=== PATIENT | male | born 1970 | race Caucasian/White ===

== ENCOUNTER 2017-09-07 12:29 | Outpatient (CLI) | payer OTHER | END 2017-09-07 12:30 | disposition home or self-care (01) | LOC: BICMRI 12:29 | PROVIDERS: ATTEND Orthopaedic Surgery | DX: M25.552 Pain in left hip (principal) ==

== ENCOUNTER 2019-05-02 17:30 | Outpatient (CLI) | payer OTHER | END 2019-05-02 17:31 | disposition home or self-care (01) | LOC: SLEEPLAB 17:30 | PROVIDERS: ATTEND Internal Medicine | DX: Z53.9 Procedure and treatment not carried out, unspecified reason (principal) | CPT/HCPCS: 95806 ==

== ENCOUNTER 2019-07-24 19:30 | Outpatient (CLI) | payer OTHER | END 2019-07-24 19:31 | disposition home or self-care (01) | LOC: SLEEPLAB 19:30 | PROVIDERS: ATTEND Internal Medicine | DX: G47.33 Obstructive sleep apnea (adult) (pediatric) (principal); R51 Headache; R53.83 Other fatigue; K21.9 Gastro-esophageal reflux disease without esophagitis; E11.9 Type 2 diabetes mellitus without complications; F41.9 Anxiety disorder, unspecified; R35.1 Nocturia; G47.10 Hypersomnia, unspecified | CPT/HCPCS: 95810 ==

== ENCOUNTER 2019-09-29 19:16 | Inpatient (IN) | payer OTHER ==
[2019-09-29 19:54] LABS: #Lymphocytes 0.5 thou/uL (1.20-3.40); #Monocytes 0.7 thou/uL (0.11-0.59); #Neutrophils 13.7 thou/uL (1.40-6.50); %Eosinophils 0.1 % (0.0-10.0); %Lymphocytes 3.6 % (21.0-51.0); %Monocytes 4.7 % (0.0-10.0); %Neutrophils 91.6 % (42.0-75.0); Hemoglobin 15.2 g/dL (14.0-18.0); Mean Corpuscular HGB CONC 34.3 g/dL (32.0-36.0); Mean Corpuscular Hemoglobin 34.7 pg (27.0-31.0); Mean Platelet Volume 9.3 fL (7.4-10.4); Platelet Count 160 thou/uL (130-400); RBC Distribution Width 11.7 % (11.5-14.5); Red Blood Cell (RBC) Count 4.38 mill/uL (4.70-6.10)
[2019-09-29 20:18] LABS: ALT (SGPT) 17 U/L (8-55); AST (SGOT) 12 U/L (5-34); Alkaline Phosphatase 68 U/L (40-110); Anion Gap 23 mmol/L (10-20); BUN (Urea Nitrogen) 22 mg/dL (8.9-20.6); Bilirubin, Total 1.2 mg/dL (0.2-1.2); CK (CPK) 112 U/L (30-200); Calc. Creatinine Clearance 0 mL/min (70-130); Carbon Dioxide 16 mmol/L (22-29); Chloride 100 mmol/L (98-107); Estimated GFR-MDRD 66; Globulin 2.3 g/dL (2.4-3.5); Glucose 435 mg/dL (70-105); Lipase 5 U/L (8-78); Potassium 4.8 mmol/L (3.5-5.1); Protein, Total 6.3 g/dL (6.0-8.3); Sodium 134 mmol/L (136-145)
--- NOTE | 2019-09-29 20:24 | RAD ---
Chest AP view INDICATION: Syncope and shortness of breath COMPARISON: January 13, 2011 FINDINGS: Lungs: The lungs are clear Cardiac silhouette: The cardiomediastinal silhouette appears within normal limits. Pulmonary vasculature: Normal Pleural spaces: No pleural effusion or pneumothorax is demonstrated. Upper abdomen: No abnormality seen. Osseous structures: No acute osseous abnormality. Additional findings: None. IMPRESSION: No acute cardiopulmonary abnormality.
[2019-09-29 21:07] LABS: Base Excess-Venous -6.5 mmol/L (-2.0 to 3.0); Bicarbonate (HCO3v) 20.1 mmol/L (22.0-28.0); CO2 Tension (PvCO2) 43.1 mmHg (40.0-50.0); Calcium, Ionized 1.14 mmol/L (See Comments:); Chloride 103 mmol/L (98-107); Hemoglobin - Calc 14.9 g/dL (14.0-18.0); Potassium 5.8 mmol/L (3.5-5.1); Sodium 134 mmol/L (138-145); T. Carbon Dioxide 21.5 mmol/L (22.0-28.0); vO2 Saturation-calc 54.2 % (60.0-85.0)
[2019-09-29] MEDS ORDERED: Insulin Regular 100 units/100 ml in NS IVPB SCH (22:00)
[2019-09-29] MEDS ORDERED: Electrolyte Replacement Protocol IVPB SCH (22:27)
[2019-09-29] MEDS ORDERED: Sodium Chloride 0.9% 1,000 ML IV PRN ×4 (22:27)
[2019-09-29] MEDS ORDERED: Acetaminophen 325 MG TAB PO PRN (22:27)
[2019-09-29] MEDS ORDERED: Dextrose 5 %-0.45 % NaCl 1,000 ML IV PRN (22:27)
[2019-09-29] MEDS ORDERED: Acetaminophen 650 MG Suppository PR PRN (22:27)
[2019-09-29] MEDS ORDERED: Ondansetron PF 4 MG/2 ML Vial IVP PRN (22:27)
[2019-09-29] MEDS ORDERED: NS 0.9% w/ 20 MEQ KCL 1,000 ML IV PRN ×2 (22:27)
[2019-09-29] MEDS ORDERED: HUMULIN R 100 UNITS in Sodium Chloride 0.9% 100 ML IVPB SCH (22:30)
[2019-09-29 23:11] LABS: Fibrinogen 274 mg/dL (253-463)
[2019-09-29 23:13] LABS: D-Dimer Test Less than 0.27 *mcg/mL (0.27-0.43)
[2019-09-29 23:14] LABS: Hemoglobin A1c 9.6 % (4.0-6.0)
[2019-09-29 23:14] LABS: Anion Gap 23 mmol/L (10-20); BUN (Urea Nitrogen) 24 mg/dL (8.9-20.6); Calc. Creatinine Clearance 0 mL/min (70-130); Calcium 8.4 mg/dL (7.8-10.44); Carbon Dioxide 16 mmol/L (22-29); Chloride 102 mmol/L (98-107); Estimated GFR-MDRD 67; Glucose 423 mg/dL (70-105); Potassium 4.8 mmol/L (3.5-5.1); Sodium 136 mmol/L (136-145)
[2019-09-30] MEDS ORDERED: Acetaminophen 500 MG TAB PO PRN (00:14)
[2019-09-30] MEDS ORDERED: Metoclopramide HCl 10 MG/2 ML VIAL IVP SCH (00:15)
[2019-09-30] MEDS ORDERED: diphenhydrAMINE 50 MG/ML VIAL IVP SCH (00:15)
[2019-09-30] MEDS: D5 1/2 NS w/20 mEq KCL 1,000 ML IV PRN ×2 (02:54→07:02)
[2019-09-30 03:53] VITALS: BMI 22.4
[2019-09-30 03:55] LABS: Anion Gap 11 mmol/L (10-20); BUN (Urea Nitrogen) 23 mg/dL (8.9-20.6); Calc. Creatinine Clearance 100 mL/min (70-130); Calcium 7.9 mg/dL (7.8-10.44); Carbon Dioxide 20 mmol/L (22-29); Chloride 110 mmol/L (98-107); Estimated GFR-MDRD Greater than 90; Glucose 135 mg/dL (70-105); Potassium 4.1 mmol/L (3.5-5.1); Sodium 137 mmol/L (136-145)
[2019-09-30 03:58] LABS: Anion Gap 12 mmol/L (10-20); BUN (Urea Nitrogen) 23 mg/dL (8.9-20.6); CRP (Inflammatory) Less than 0.50 mg/dL (= or < 0.5); Calc. Creatinine Clearance 100 mL/min (70-130); Carbon Dioxide 20 mmol/L (22-29); Chloride 110 mmol/L (98-107); Estimated GFR-MDRD Greater than 90; Glucose 136 mg/dL (70-105); Potassium 4.2 mmol/L (3.5-5.1); Sodium 138 mmol/L (136-145)
--- NOTE | 2019-09-30 05:11 | PDOC.FPRHP ---
- History of Present Illness Chief Complaint: pre-syncope History of Present Illness: 49YOM with a PMH notable for IDDMI who presented to the ER via EMS after reportedly having a pre-syncopal episode at work. Per the patient was in his usual state of health until ~3-4 days ago when he started experiencing a constant frontal BROWN and L-sided chest ache. This unrelenting pain as well as nausea is what eventually prompted him to get COVID swabbed at the [facility] in & he still doesn't know those results. Was tested on 09/27/19. Since his COVID test his BROWN, chest pain, & nausea have persisted. 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 He denies any LOC or hitting his head. He endorses nausea w / 1 vomiting episode at work before his pre-syncopal episode. He denies any fever/chills, cough, congestion, sore throat, abodminal pain, dysuria, or polyuria. No SOB or diarrhea as well. Of note, the patient reports that he noted after his arrival to the ER that his insulin pump connection was faulty. His BG was reportedly in the 300 per his home BG monitor in the field but ~5 minutes later when EMS checked it it was in the 500s. Reports that he did attempt to give himself a 4.2U bolus [employer] in the ED. ED Course: Insulin ggt @ 7, 2.5L of NS - Allergies/Adverse Reactions Allergies Allergy/AdvReac Type Severity Reaction Status Date / Time azithromycin Allergy Verified 09/30/19 03:26 erythromycin base Allergy Verified 06/13/19 01:50 - Home Medications Medication Instructions Recorded Confirmed Type FLUoxetine HCl [Prozac] 60 mg PO DAILY 09/30/19 09/30/19 History Insulin Pump Controller [Omnipod 09/30/19 History Dash Pdm Kit] Modafinil 200 mg PO DAILY 09/30/19 09/30/19 History Ondansetron HCl [Zofran] 4 mg PO Q8HR PRN 09/30/19 09/30/19 History QUEtiapine Fumarate [SEROquel] 25 mg PO HS 09/30/19 09/30/19 History Rosuvastatin [Crestor] 10 mg PO HS 09/30/19 09/30/19 History Sertraline HCl 25 mg PO HS 09/30/19 09/30/19 History - History PMHx: DMI, anxiety, HLD PSHx: L knee, B/L rotator cuff repairs, R elbow, L hip, B/L eye sx for retinopathy FHx: Brother with DMI, mom w/ DMII, dad w/ CAD & h/o CVA Social: Lives at home w/ . Works as a auto body mechanic apprentice. Former smoker. Smoked ~1.5 ppd from age 17- ~44YO. Former alcoholic but quit in 1998. Drinks ~1 beer/day now. No drug use since college. - Review of Systems General: denies: fever/chills Eyes: denies: vision changes ENT: reports: other (no sore throat). denies: nasal congestion Respiratory: denies: cough, shortness of breath Cardiovascular: reports: chest pain. denies: palpitation, edema Gastrointestinal: reports: nausea, vomiting. denies: diarrhea, constipation, abdominal pain Genitourinary: reports: other (no hematuria). denies: dysuria Skin: denies: rashes, lesions Musculoskeletal: denies: pain, swelling Neurological: reports: other (+ BROWN). denies: syncope, seizure Psychological: reports: anxiety. denies: depression - Vital signs BP: 105/45 HR: 113 RR: 19 Tmax: 98.2F Pox: 97% on RA Wt: 69 kg - Physical Exam Constitutional: NAD, awake, alert and oriented HEENT: normocephalic and atraumatic, grossly normal vision, grossly normal hearing, MMM, other (poor dentition) Neck: supple, FROM Heart: normal S1/S2, no murmurs/rubs/gallops, pulses present, no edema, other ( tachycardic with regular rhythm) Lungs: CTAB, no respiratory distress, good air movement, no rales/rhonchi, no wheezing, no retractions Abdomen: soft, non-tender, bowel sounds present Musculoskeletal: normal structure, normal tone, ROM grossly normal Neurological: no focal deficit, CN II-XII intact Skin: no rash/lesions, good turgor Heme/Lymphatic: no unusual bruising or bleeding Psychiatric: normal mood and affect, good judgment and insight, intact recent and remote memory FMR H&P: Results - Labs Result Diagrams: 09/29/19 19:46 09/30/19 02:54 Lab results: WBC 15.0 thou/uL (4.8-10.8) H 09/29/19 19:46 Hgb 15.2 g/dL (14.0-18.0) 09/29/19 19:46 Hct 44.3 % (42.0-52.0) 09/29/19 19:46 MCV 101.0 fL (78.0-98.0) H 09/29/19 19:46 Plt Count 160 thou/uL (130-400) 09/29/19 19:46 Neutrophils % 91.6 % (42.0-75.0) H 09/29/19 19:46 VBG pCO2 43.1 mmHg (40.0-50.0) 09/29/19 21:05 VBG pO2 32.3 mmHg (35.0-45.0) L 09/29/19 21:05 Sodium 138 mmol/L (136-145) 09/30/19 02:54 Potassium 4.2 mmol/L (3.5-5.1) 09/30/19 02:54 Chloride 110 mmol/L (98-107) H 09/30/19 02:54 Carbon Dioxide 20 mmol/L (22-29) L 09/30/19 02:54 BUN 23 mg/dL (8.9-20.6) H 09/30/19 02:54 Creatinine 0.86 mg/dL (0.7-1.3) 09/30/19 02:54 Glucose 136 mg/dL (70-105) H 09/30/19 02:54 Calcium 8.0 mg/dL (7.8-10.44) 09/30/19 02:54 Total Bilirubin 1.2 mg/dL (0.2-1.2) 09/29/19 19:46 AST 12 U/L (5-34) 09/29/19 19:46 ALT 17 U/L (8-55) 09/29/19 19:46 Alkaline Phosphatase 68 U/L (40-110) 09/29/19 19:46 Creatine Kinase 112 U/L (30-200) 09/29/19 19:46 C-Reactive Protein Less than 0.50 mg/dL (= or < 0.5) 09/30/19 02:54 B-Natriuretic Peptide 18.8 pg/mL (0-100) 09/29/19 19:46 Serum Total Protein 6.3 g/dL (6.0-8.3) 09/29/19 19:46 Albumin 4.0 g/dL (3.5-5.0) 09/29/19 19:46 Lipase 5 U/L (8-78) L 09/29/19 19:46 Laboratory Tests 09/29/19 19:30 B-Hydroxybutyrate 5.86 H - EKG Interpretation EKG: NSR @ 94 bpm, QTc 477 - Radiology Interpretation Chest x-ray Status: image reviewed by me, report reviewed by me (MAICOL) FMR H&P: A/P - Problem List (1) Diabetic ketoacidosis associated with type 1 diabetes mellitus Current Visit: Yes Status: Acute Code(s): E10.10 - TYPE 1 DIABETES MELLITUS WITH KETOACIDOSIS WITHOUT COMA (2) Anxiety Current Visit: Yes Status: Chronic Code(s): F41.9 - ANXIETY DISORDER, UNSPECIFIED (3) Dyslipidemia Current Visit: No Status: Chronic Code(s): E78.5 - HYPERLIPIDEMIA, UNSPECIFIED (4) HTN (hypertension) Current Visit: No Status: Chronic Code(s): I10 - ESSENTIAL (PRIMARY) HYPERTENSION (5) Person under investigation for COVID-19 Current Visit: Yes Status: Acute Code(s): Z20.828 - CONTACT W AND EXPOSURE TO OTH VIRAL COMMUNICABLE DISEASES (6) MEGAN (acute kidney injury) Current Visit: Yes Status: Acute Code(s): N17.9 - ACUTE KIDNEY FAILURE, UNSPECIFIED - Plan 49YOM with a PMH notable for DMI who presented to the ER via EMS for a near- syncopal episode at work who was found to be profoundly hyperglycemic & determined to be in DKA. #DKA in setting of DMI: - AG of 18 w/ elevated serum ketones and BG of 435 on presentation c/w DKA in setting of DMI. S/p bolus in field. Started on insulin drip & DKA protocol in ED. Continue Q4Hr BMPs & Q1Hr accuchecks per DKA protocol. - Per Hx likely 2/2 pump malfunction but will obtain a UA to r/o possible UTI. CXR WNLs. COVID swab pending. #MGEAN: - eGFR 66 w/ Cr of 1.17 on presentation which is above baseline per chart review. Will continue to monitor w/ DKA protocol BMPs & getting fluids per the protocol to help with this as well. #COVID-19 PUI: - Had outpatient testing done in on 09/27/19 @ physician center on [address] per patient with no results back yet. Rapid screen taken in ER & still pending. Continue routine precautions pending the results. Will add COVID labs but very low suspicion based on history. #DMI: - Aware, patient has an insulin pump. Will resume home dosing regimen once off insulin ggt. Will check an A1c w/ admission labs. #Anxiety: - Will resume home meds. #HLD: - Resume home meds. Dispo: Will admit to the IMCU for continued tx of DKA per protocol. Anticipated LOS >/=2 midnights pending clinical course. IVFs: per DKA protocol Abx: None VTE PPX: Lovenox GI PPX: famotidine CODE STATUS: FULL CODE PCP: Goldie NVAA H&P: Upper Level - Plan Date/Time: 09/30/19 0511 I, [], have evaluated this patient and agree with findings/plan as outlined by recruitment internship resident. Pertinent changes/additions are listed here.
--- NOTE | 2019-09-30 06:12 | PDOC.FM ---
- Subjective Subjective: Patient states he feels better this morning. His headache has improved and is reported as a mild pain. Chest pain is described as musculoskeletal, waving/ waning and currently a 2/10. He denies nausea or vomiting since last night. No SOB or dizziness. He says his last hospitalization for DKA was over 10 years ago. - Objective MAR Reviewed: Yes Vital Signs & Weight: Vital Signs (12 hours) Temp Pulse Ox 09/30/19 04:00 99 09/30/19 03:53 97.8 F 09/30/19 02:40 98.7 F Weight Weight 69.088 kg Result Diagrams: 09/29/19 19:46 09/30/19 06:38 Phys Exam - Physical Examination Constitutional: NAD HEENT: moist MMs, sclera anicteric Neck: supple, full ROM Respiratory: no wheezing, clear to auscultation bilateral Cardiovascular: RRR, no significant murmur Gastrointestinal: soft, positive bowel sounds Musculoskeletal: no edema, pulses present Neurological: non-focal, moves all 4 limbs Lymphatic: no nodes Psychiatric: normal affect, A&O x 3 Skin: no rash, normal turgor Dx/Plan - Plan Plan: 1. DKA 2/2 DM Type 1 Likely due to pump malfunction patient noticed last night. Anion gap of 18 with elevated serum ketones and BG of 435 upon admission. CXR normal. COVID negative. A1C 9.6. Patient received bolus in the field. DKA protocol initiated in the ED with insulin ggt and D5 1/2 NS with KCl. UA ordered for possible UTI. Most recent BMP showed BG 111, anion gap 5, bicarb 21. Patient meets criteria to discontinue insulin ggt. He has extra supplies for the pump in the room. -BMP q4h -Accucehcks Q1hr -Restart basal insulin using pump. Settings are based on patient's routine working night shifts [id number] 0.75 1366-7033 0.65 6931-4284 0.60 0923-4103 1.00 3539-2850 1.10 -Discontinue insulin drip after 1 hour of receiving basal insulin -DKA protocol for D5 1/2 NS with KCl at 250 mls/hr -Start diabetic diet -F/u UA 2. Low BP on monitor This am BP was 87/52. Repeat improved to 90/54. Patient reports a lifetime history of low BPs without symptoms. Currently receiving fluids. -Continue to monitor 3. Anxiety -Continue home meds 4. HLD -Continue home meds VTE PPX: Lovenox GI PPX: Famotidine CODE STATUS: FULL CODE PCP: Goldie Dispo: transition to floor once insulin ggt discontinued with continued stable BG Addendum - Attending - Attending Attestation Date/Time: 09/30/19 8983 I personally evaluated the patient and discussed the management with Dr. Meek. I agree with the History, Examination, Assessment and Plan documented above with any addition or exceptions noted below. Patient improved. DKA resolved. Transitioning back to his home insulin regimen with insulin pump. Stable for dc out of IMCU.
[2019-09-30 07:17] LABS: Anion Gap 9 mmol/L (10-20); BUN (Urea Nitrogen) 21 mg/dL (8.9-20.6); Calc. Creatinine Clearance 109 mL/min (70-130); Calcium 7.5 mg/dL (7.8-10.44); Carbon Dioxide 21 mmol/L (22-29); Chloride 110 mmol/L (98-107); Estimated GFR-MDRD Greater than 90; Glucose 111 mg/dL (70-105); Sodium 136 mmol/L (136-145)
[2019-09-30] MEDS ORDERED: FLUoxetine HCl 20 MG CAP PO SCH (09:00)
[2019-09-30] MEDS: FLUoxetine HCl 20 MG CAP PO SCH (10:08)
[2019-09-30] MEDS: Modafinil 100 MG TAB PO SCH (10:09)
[2019-09-30] MEDS: Famotidine/PF 20 mg/2ml Vial SLOW IVP SCH ×2 (10:09→22:01)
[2019-09-30] MEDS: Enoxaparin Sodium 40 MG/0.4 ML SYRINGE SC SCH (10:10)
[2019-09-30] MEDS ORDERED: HumaLOG 300 UNITS/3 ML VIAL SC PRN ×2 (11:38)
[2019-09-30] MEDS ORDERED: Dextrose 5% in Water 1,000 ML IV PRN (11:38)
[2019-09-30] MEDS ORDERED: Dextrose 50% Abboject 50 ML SYRINGE SLOW IVP PRN (11:38)
[2019-09-30] MEDS ORDERED: INSULIN PUMP CONTROLLER SQ SCH (11:45)
[2019-09-30 14:37] LABS: Bacteria/HPF None Seen HPF (None Seen); Bilirubin Negative (Negative); Blood, Urine Negative (Negative); Clarity Clear (Clear); Glucose, Urine (Dipstick) Greater than 1000 mg/dL (Negative); Ketone, Urine 40 mg/dL (Negative); Leukocyte Negative Leu/uL (Negative); Mucous/LPF 1+ LPF (<2+); Nitrite Negative (Negative); Protein, Urine (Dipstick) Negative (Neg-Trace); RBC/HPF 0-3 HPF (0-3); Specific Gravity, Urine 1.024 (1.002-1.036); Squamous Epithelial 0-3 HPF (0-3); Urobilinogen Normal mg/dL (Less than 2); WBC/HPF 0-3 HPF (0-3); pH, Urine 5.5 (5.0-9.0)
[2019-09-30 14:39] LABS: Urine Culture Reflex No No
[2019-09-30 16:14] LABS: Anion Gap 13 mmol/L (10-20); BUN (Urea Nitrogen) 20 mg/dL (8.9-20.6); Calc. Creatinine Clearance 94 mL/min (70-130); Carbon Dioxide 19 mmol/L (22-29); Chloride 104 mmol/L (98-107); Estimated GFR-MDRD 87; Potassium 4.7 mmol/L (3.5-5.1); Sodium 131 mmol/L (136-145)
[2019-09-30 16:15] LABS: Calcium 7.5 mg/dL (7.8-10.44); Glucose 384 mg/dL (70-105)
[2019-09-30] MEDS ORDERED: HumaLOG 300 UNITS/3 ML VIAL SC SCH (16:30)
[2019-09-30] MEDS ORDERED: NPH, Human Insulin Isophane 300 UNIT/3 ML VIAL SC SCH (16:30)
[2019-09-30 19:04] LABS: Anion Gap 7 mmol/L (10-20); BUN (Urea Nitrogen) 19 mg/dL (8.9-20.6); Calc. Creatinine Clearance 94 mL/min (70-130); Calcium 7.8 mg/dL (7.8-10.44); Carbon Dioxide 24 mmol/L (22-29); Chloride 104 mmol/L (98-107); Estimated GFR-MDRD 87; Glucose 294 mg/dL (70-105); Potassium 4.2 mmol/L (3.5-5.1); Sodium 131 mmol/L (136-145)
[2019-09-30] MEDS ORDERED: Rosuvastatin 10 MG TAB PO SCH (21:00)
[2019-10-01 03:57] VITALS: TEMP 97.9
[2019-10-01 04:43] LABS: Anion Gap 11 mmol/L (10-20); BUN (Urea Nitrogen) 13 mg/dL (8.9-20.6); Calc. Creatinine Clearance 104 mL/min (70-130); Calcium 7.7 mg/dL (7.8-10.44); Carbon Dioxide 25 mmol/L (22-29); Chloride 106 mmol/L (98-107); Estimated GFR-MDRD Greater than 90; Glucose 147 mg/dL (70-105); Potassium 3.9 mmol/L (3.5-5.1); Sodium 138 mmol/L (136-145)
--- NOTE | 2019-10-01 06:03 | PDOC.FM ---
- Subjective Subjective: Patient reports he feels great. He complains of mild chest wall pain improved with Tylenol but denies headache, dizziness, SOB, nausea and vomiting. His brought new insulin and pump supplies last pm. Patient says his pump has been working well with stable glucose levels since that time. - Objective MAR Reviewed: Yes Vital Signs & Weight: Vital Signs (12 hours) Temp Pulse Ox 10/01/19 03:57 97.9 F 10/01/19 00:00 97.8 F 09/30/19 20:00 98 09/30/19 19:16 99.2 F Weight Weight 69.088 kg Most Recent Monitor Data Heart Rate from ECG 62 NIBP 87/49 NIBP BP-Mean 61 Respiration from ECG 22 SpO2 97 I&O: 09/29/19 09/30/19 10/01/19 06:59 06:59 06:59 Intake Total 1183 2900 Output Total 2850 Balance 1183 50 Result Diagrams: 09/29/19 19:46 10/01/19 03:41 Phys Exam - Physical Examination Constitutional: NAD HEENT: moist MMs, sclera anicteric Neck: supple, full ROM Respiratory: no wheezing, clear to auscultation bilateral Cardiovascular: RRR, no significant murmur Gastrointestinal: soft, positive bowel sounds Musculoskeletal: no edema, pulses present Neurological: non-focal, moves all 4 limbs Lymphatic: no nodes Psychiatric: normal affect, A&O x 3 Skin: no rash, normal turgor Dx/Plan - Plan Plan: 1. DKA 2/2 DM Type 1 Likely due to pump malfunction patient noticed prior to admission. Anion gap of 18 with elevated serum ketones and BG of 435 upon admission. CXR normal. COVID negative. A1C 9.6. Patient received bolus in the field. DKA protocol initiated in the ED with insulin ggt and D5 1/2 NS with KCl. UA ordered for possible UTI. Repeat BMP showed BG 111, anion gap 5, bicarb 21. Patient meets criteria to discontinue insulin ggt. Pump malfunction noted again once resuming home insulin. Patient's brought new insulin and pump supplies from home with resulting reduction and stabilization in BG. -Continue basal insulin using pump. Settings are based on patient's routine working night shifts [id number] 0.75 [id number] 0.65 4114-1395 0.60 5181-8914 1.00 [id number] 1.10 -Continue diabetic diet -Accuchecks Q4H -Transfer to the floor 2. Low BP on monitor Patient reports a lifetime history of low BPs without symptoms. Received fluids for 24 hours. Remained stable at 80-90s systolic. -Continue to monitor 3. Anxiety -Continue home meds 4. HLD -Continue home meds VTE PPX: Lovenox GI PPX: Famotidine CODE STATUS: FULL CODE PCP: Goldie Dispo: stable to transition to floor today with resolution of DKA and stable BG after discontinuing insulin drip. If BG remains stable today, patient can be discharged home. Addendum - Attending - Attending Attestation Date/Time: 10/01/19 0750 I personally evaluated the patient and discussed the management with Dr. Meek. I agree with the History, Examination, Assessment and Plan documented above with any addition or exceptions noted below. Patient doing well and blood sugars controlled now on his home insulin pump and regimen. Suspect this entire admission was due to faulty insulin in his pump. He is feeling well and should be stable for discharge later today.
[2019-10-01] MEDS: Enoxaparin Sodium 40 MG/0.4 ML SYRINGE SC SCH (08:37)
[2019-10-01] MEDS: Famotidine/PF 20 mg/2ml Vial SLOW IVP SCH (08:37)
[2019-10-01] MEDS: FLUoxetine HCl 20 MG CAP PO SCH (08:37)
[2019-10-01] MEDS: Modafinil 100 MG TAB PO SCH (08:44)
[2019-10-01 15:20] VITALS: BP 136/70
--- NOTE | 2019-10-01 22:18 | DIS ---
DATE OF ADMISSION: 09/29/2019 DATE OF DISCHARGE: 10/01/2019 RESIDENT: Celia Meek MD ADMITTING ATTENDING: Graham Peralta MD DISCHARGE ATTENDING: Rj Lucas MD CONSULTS: None. PROCEDURES: None. PRIMARY DIAGNOSES: Diabetic ketoacidosis in the setting of DM1 secondary to faulty insulin and pump SECONDARY DIAGNOSES: Anxiety, hyperlipidemia. DISCHARGE MEDICATIONS: 1. Prozac 60 mg p.o. 2. Omnipod insulin pump. 3. Seroquel 25 mg p.o. 4. Crestor 10 mg p.o. 5. Zoloft 25 mg p.o. 6. Modafinil 200 mg p.o. DISCONTINUED MEDICATIONS: None. HISTORY OF PRESENT ILLNESS: The patient is a 49-year-old male with a history of type 1 diabetes since age 12, who presented to the ER via EMS after a presyncopal episode at work. The patient reported a 3-day history of headaches, chest wall pain, nausea, and vomiting. On the way to the ED, he noted that his pump was not functioning correctly. Upon arrival to the ED, anion gap was found to be 18 with elevated serum ketones and blood glucose of 435. Chest x-ray was negative. COVID was negative. A1c at 9.6. The patient was started on DKA protocol with insulin ggt and D5 half normal saline with KCl. Repeat BMP showed a blood glucose of 111, anion gap of 5, and bicarb of 21. The patient met criteria to discontinue insulin ggt. Upon resumption of the patient's pump and home dose of insulin, a malfunction was noticed again with a resulting increase in blood glucose to the 300s. The patient's brought new insulin from home for the pump, resulting in a successful reduction in blood glucose levels and stabilization of the blood glucose. The pump was set on the patient's home insulin regimen. He was deemed stable to move to the floor on 09/30. Blood glucose remained in the mid 100s during the day and he was deemed stable for discharge in the afternoon. DISPOSITION: Stable. DISCHARGE INSTRUCTIONS: Location: Home. Diet: Diabetic. Activity: As tolerated. Followup: PCP in 3 to 5 days. Job ID: [id number] [facility]
== END 2019-10-01 16:51 | disposition home or self-care (01) | DRG 919 ==
LOC: ERS 19:16 → IMCU/EMU 22:18 → T4-B 10-01 11:08
PROVIDERS: ADMIT Family Medicine; ATTEND Family Medicine
DX: T85.694A Other mechanical complication of insulin pump, initial encounter (principal); E10.10 Type 1 diabetes mellitus with ketoacidosis without coma; N17.9 Acute kidney failure, unspecified; F41.9 Anxiety disorder, unspecified; E78.5 Hyperlipidemia, unspecified; Z20.828 Contact with and (suspected) exposure to other viral communicable diseases; Z87.891 Personal history of nicotine dependence; Z88.1 Allergy status to other antibiotic agents; Z88.8 Allergy status to other drugs, medicaments and biological substances
CPT/HCPCS: 36415; 36416; 71045; 80048; 80053; 80061; 81001; 82010; 82330; 82550; 82728; 82803; 83036; 83615; 83690; 83880; 84484; 85025; 85379; 85384; 86140; 93005; 96361; 96365; 96366; 96367; J1200; J1650; J1815; J2765; J3480; J3490; S0028; U0002

== ENCOUNTER 2020-09-10 01:49 | Inpatient (IN) | payer OTHER ==
[2020-09-10 02:24] LABS: #Eosinphils 0.1 thou/uL (0.0-0.7); #Lymphocytes 0.9 thou/uL (1.20-3.40); #Monocytes 0.7 thou/uL (0.11-0.59); #Neutrophils 14.8 thou/uL (1.40-6.50); %Basophils 0.2 % (0.0-1.0); %Eosinophils 0.3 % (0.0-10.0); %Lymphocytes 5.6 % (21.0-51.0); %Monocytes 4.2 % (0.0-10.0); %Neutrophils 89.7 % (42.0-75.0); Hemoglobin 15.9 g/dL (14.0-18.0); Mean Corpuscular Hemoglobin 35.2 pg (27.0-31.0); Mean Platelet Volume 9.3 fL (7.4-10.4); Platelet Count 168 thou/uL (130-400); RBC Distribution Width 11.7 % (11.5-14.5); Red Blood Cell (RBC) Count 4.53 mill/uL (4.70-6.10); White Blood Cell (WBC) Count 16.5 thou/uL (4.8-10.8)
[2020-09-10 02:47] LABS: ALT (SGPT) 31 U/L (8-55); AST (SGOT) 32 U/L (5-34); Albumin 4.4 g/dL (3.5-5.0); Alkaline Phosphatase 83 U/L (40-110); Anion Gap 29 mmol/L (10-20); BUN (Urea Nitrogen) 33 mg/dL (8.4-25.7); Bilirubin, Total 0.9 mg/dL (0.2-1.2); CK (CPK) 99 U/L (30-200); Calc. Creatinine Clearance 0 mL/min (70-130); Calcium 9.3 mg/dL (7.8-10.44); Carbon Dioxide 13 mmol/L (22-29); Chloride 95 mmol/L (98-107); Glucose 454 mg/dL (70-105); Potassium 5.2 mmol/L (3.5-5.1); Protein, Total 7.4 g/dL (6.0-8.3); Sodium 132 mmol/L (136-145)
[2020-09-10] MEDS ORDERED: Insulin Regular 300 UNITS/3 ML VIAL ONE (03:05)
[2020-09-10 03:21] LABS: Actual Bicarbonate (HCO3v) 17 mEq/L (22-28); Analyzer IN Cardio ER; Base Excess -8.9 mEq/L (-2.0 to +3.0); Calcium, Ionized (venous) 1.14 mmol/L (1.16-1.32); Chloride (VBG) 94 mmol/L (98-106); Hemoglobin (Hb) 15.9 g/dL (13.1-17.2); Potassium (VBG) 4.53 mmol/L (3.70-5.30); Sodium 131.6 mmol/L (133-146); pH (venous) 7.28 (7.32-7.43)
[2020-09-10] MEDS ORDERED: INSULIN REGULAR IN 0.9 % NACL 100 UNIT/100 ML BAG ONE (03:28)
[2020-09-10] MEDS ORDERED: Electrolyte Replacement Protocol 1 EACH IVPB PRN (04:07)
[2020-09-10] MEDS ORDERED: Dextrose 5 %-0.45 % NaCl 1,000 ML IV PRN (04:07)
[2020-09-10] MEDS ORDERED: NS 0.9% w/ 20 MEQ KCL 1,000 ML IV PRN ×2 (04:07)
[2020-09-10] MEDS ORDERED: Sodium Chloride 0.9% 1,000 ML IV PRN ×4 (04:07)
[2020-09-10] MEDS ORDERED: D5 1/2 NS w/20 mEq KCL 1,000 ML IV PRN (04:07)
[2020-09-10] MEDS ORDERED: HUMULIN R 100 UNITS in Sodium Chloride 0.9% 100 ML IVPB SCH (04:15)
[2020-09-10 04:35] LABS: Anion Gap 16 mmol/L (10-20); BUN (Urea Nitrogen) 27 mg/dL (8.4-25.7); Calc. Creatinine Clearance 0 mL/min (70-130); Carbon Dioxide 20 mmol/L (22-29); Chloride 105 mmol/L (98-107); Glucose 175 mg/dL (70-105); Potassium 3.8 mmol/L (3.5-5.1); Sodium 137 mmol/L (136-145)
[2020-09-10 04:46] VITALS: BMI 23.1
[2020-09-10 06:50] LABS: Hemoglobin A1c 9.8 % (4.0-6.0)
[2020-09-10] MEDS ORDERED: Modafinil 100 MG TAB PO SCH ×2 (09:00→21:00)
[2020-09-10] MEDS ORDERED: FLUoxetine HCl 20 MG CAP PO SCH ×2 (09:00→21:00)
[2020-09-10 09:18] LABS: Anion Gap 14 mmol/L (10-20); BUN (Urea Nitrogen) 18 mg/dL (8.4-25.7); Calc. Creatinine Clearance 105 mL/min (70-130); Calcium 7.6 mg/dL (7.8-10.44); Carbon Dioxide 18 mmol/L (22-29); Chloride 104 mmol/L (98-107); Glucose 265 mg/dL (70-105); Potassium 5.4 mmol/L (3.5-5.1); Sodium 131 mmol/L (136-145)
[2020-09-10] MEDS ORDERED: Dextrose 5% in Water 1,000 ML IV PRN (09:35)
[2020-09-10] MEDS ORDERED: HumaLOG 300 UNITS/3 ML VIAL SC PRN ×3 (09:35→14:18)
[2020-09-10] MEDS ORDERED: Dextrose 50% Abboject 50 ML SYRINGE SLOW IVP PRN (09:35)
[2020-09-10 10:54] LABS: SARS-CoV-2 PCR by NAA Not Detected (NotDetected)
[2020-09-10 14:30] LABS: Anion Gap 10 mmol/L (10-20); BUN (Urea Nitrogen) 22 mg/dL (8.4-25.7); Calc. Creatinine Clearance 92 mL/min (70-130); Calcium 8.3 mg/dL (7.8-10.44); Carbon Dioxide 25 mmol/L (22-29); Chloride 102 mmol/L (98-107); Glucose 401 mg/dL (70-105); Potassium 4.9 mmol/L (3.5-5.1); Sodium 132 mmol/L (136-145)
[2020-09-10] MEDS ORDERED: Rosuvastatin 10 MG TAB PO SCH (21:00)
[2020-09-11 03:28] LABS: Band 3 % (5-11); Eosinophils 1 % (0-10); Lymphocytes 19 % (21-51); MDiff Complete? YES; Mean Corpuscular HGB CONC 34.2 g/dL (32.0-36.0); Mean Corpuscular Hemoglobin 34.5 pg (27.0-31.0); Mean Platelet Volume 8.5 fL (7.4-10.4); Monocytes 11 % (0-10); Neutrophil 65 % (42-75); Platelet Count 163 thou/uL (130-400); RBC Distribution Width 12.1 % (11.5-14.5); Reactive Lymphocytes 1 % (0-10); Red Blood Cell (RBC) Count 4.35 mill/uL (4.70-6.10)
[2020-09-11 03:56] LABS: Calcium 8.3 mg/dL (7.8-10.44); Chloride 106 mmol/L (98-107); Potassium 3.3 mmol/L (3.5-5.1); Sodium 140 mmol/L (136-145)
[2020-09-11 03:58] LABS: Anion Gap 14 mmol/L (10-20); Carbon Dioxide 23 mmol/L (22-29)
[2020-09-11 04:00] LABS: Calc. Creatinine Clearance 122 mL/min (70-130)
[2020-09-11 04:01] LABS: BUN (Urea Nitrogen) 14 mg/dL (8.4-25.7)
[2020-09-11 04:02] LABS: Glucose 33 mg/dL (70-105)
[2020-09-11 04:33] VITALS: TEMP 97.5
[2020-09-11] MEDS ORDERED: Potassium Chloride 20 MEQ TAB PO SCH (06:45)
== END 2020-09-11 13:50 | disposition home or self-care (01) | DRG 639 ==
LOC: ERS 01:49 → IMCU/EMU 03:23
PROVIDERS: ADMIT Family Medicine; ATTEND Family Medicine
DX: E10.10 Type 1 diabetes mellitus with ketoacidosis without coma (principal); E78.5 Hyperlipidemia, unspecified; F41.9 Anxiety disorder, unspecified; E86.1 Hypovolemia; F32.9 Major depressive disorder, single episode, unspecified; Z20.822 Contact with and (suspected) exposure to COVID-19; Z88.1 Allergy status to other antibiotic agents; Z79.4 Long term (current) use of insulin; Z87.891 Personal history of nicotine dependence; Z98.890 Other specified postprocedural states
CPT/HCPCS: 36415; 36416; 80048; 80053; 82010; 82550; 82805; 83036; 85007; 85025; 85027; 93005; 96365; 96376; J1815; J3480; U0003; U0005

== ENCOUNTER 2022-09-24 17:58 | Emergency (ER) | payer OTHER ==
[~2022-09-24 17:58] MED LIST: Iopamidol-370 76% 500 ML MDV (1 ML CHARGE) ONE
[2022-09-24 18:38] LABS: #Monocytes 0.9 thou/uL (0.11-0.59); #Neutrophils 5.1 thou/uL (1.40-6.50); %Basophils 0.4 % (0.0-1.0); %Eosinophils 0.5 % (0.0-10.0); %Lymphocytes 16.7 % (21.0-51.0); %Monocytes 12.8 % (0.0-10.0); %Neutrophils 69.3 % (42.0-75.0); Hemoglobin 15.8 g/dL (14.0-18.0); Mean Corpuscular HGB CONC 34.1 g/dL (32.0-36.0); Mean Corpuscular Hemoglobin 34.1 pg (27.0-31.0); Mean Platelet Volume 10.9 fL (7.4-10.4); Platelet Count 166 10x3/uL (130-400); RBC Distribution Width 12.5 % (11.5-14.5); Red Blood Cell (RBC) Count 4.63 mill/uL (4.70-6.10); White Blood Cell (WBC) Count 7.3 10x3/uL (4.8-10.8)
[2022-09-24] MEDS ORDERED: Ipratropium/Albuterol 3 ML NEB ONE (18:42)
[2022-09-24 19:01] LABS: ALT (SGPT) 14 U/L (8-55); AST (SGOT) 16 U/L (5-34); Albumin 3.4 g/dL (3.5-5.0); Alkaline Phosphatase 59 U/L (40-110); Anion Gap 12 mmol/L (10-20); BUN (Urea Nitrogen) 13 mg/dL (8.4-25.7); Bilirubin, Total 0.3 mg/dL (0.2-1.2); Calc. Creatinine Clearance 0 mL/min (70-130); Calcium 8.2 mg/dL (7.8-10.44); Carbon Dioxide 25 mmol/L (22-29); Chloride 101 mmol/L (98-107); Estimated GFR 101; Globulin 2.6 g/dL (2.4-3.5); Glucose 247 mg/dL (70-105); Potassium 4.4 mmol/L (3.5-5.1); Sodium 134 mmol/L (136-145)
[2022-09-24 19:57] LABS: SARS-CoV-2 NAA Rapid Test DETECTED (NotDetected)
== END 2022-09-24 21:50 | disposition home or self-care (01) ==
LOC: ERS 17:58
DX: U07.1 COVID-19 (principal); R06.00 Dyspnea, unspecified; E11.9 Type 2 diabetes mellitus without complications; Z79.4 Long term (current) use of insulin; Z20.822 Contact with and (suspected) exposure to COVID-19
CPT/HCPCS: 36415; 71045; 71275; 80053; 83605; 84484; 85025; 87040; 93005; J7620; Q9967